=== PATIENT | female | born 1990 | race Caucasian/White ===

== ENCOUNTER 2022-10-25 00:33 | Inpatient (IN) | payer SELFPAY ==
[~2022-10-25] VITALS: Ht 165.1 cm; Wt 55.5 kg
[2022-10-25] VITALS (11 sets, daily range): BP systolic 97–131; BP diastolic 47–72
[2022-10-25 00:57] LABS: HEMATOCRIT 34.3 % (37.0-47.0); MANUAL DIFF REFLEX YES; MEAN CELL VOLUME 90.7 fl (81.0-99.0); MEAN CORPUSCULAR HGB 31.5 pg (27.0-31.0); MEAN CORPUSCULAR HGB CONC 34.7 g/dl (33.0-37.0); MEAN PLATELET VOLUME 9.6 fl (9.6-12.3); PLATELET COUNT AUTOMATED 423 10*3/uL (130-400); RED BLOOD COUNT 3.78 10*6/uL (4.10-5.10); WHITE BLOOD COUNT 24.9 10*3/uL (4.8-10.8)
[2022-10-25 01:13] LABS: ALKALINE PHOSPHATASE 98 U/L (46-116); BUN 15 mg/dl (9-23); CHLORIDE 95 mmol/L (98-107); CREATININE 0.83 mg/dL (0.55-1.02); ETHYL ALCOHOL 7.2 mg/dl (<3); SGPT/ALT 47 U/L (10-49); SODIUM 130 mmol/L (136-145)
[2022-10-25 01:14] LABS: TOTAL PROTEIN 7.5 gm/dL (6.0-8.0)
[2022-10-25 01:16] LABS: TOTAL CELLS COUNTED 100 #CELLS
[2022-10-25 01:17] LABS: PLATELET SUFFICIENCY HIGH (NORMAL)
[2022-10-25 01:25] LABS: CPK 3477 U/L (34-171)
[2022-10-25 01:38] LABS: BILIRUBIN Negative (Negative); BLOOD 1+ (Negative); CLARITY Clear (Clear); COLOR Yellow (Yellow); GLUCOSE Negative (Negative); KETONE 1+ (Negative); LEUKO ESTERASE Negative (Negative); NITRITE Negative (Negative); SPECIFIC GRAVITY >= 1.030 (1.001-1.030)
[2022-10-25 01:45] LABS: URINE AMPHETAMINES Positive (1000ng/ml)
[2022-10-25 01:46] LABS: URINE BARBITURATES Negative (200ng/ml); URINE BENZODIAZEPINES Negative (200ng/ml); URINE CANNABINOIDS (THC) Positive (50ng/ml); URINE COCAINE Negative (300ng/ml); URINE METHADONE Negative (300ng/ml); URINE OPIATES Negative (300ng/ml); URINE PHENCYCLIDINE Negative (25ng/ml)
[2022-10-25 01:58] LABS: EPITHELIAL CELLS 16-20
[2022-10-25 01:59] LABS: WBC 0-2 wbc/hpf (0-5)
[2022-10-25 07:59] LABS: HEMATOCRIT 31.3 % (37.0-47.0); MEAN CELL VOLUME 91.8 fl (81.0-99.0); MEAN CORPUSCULAR HGB 31.4 pg (27.0-31.0); MEAN CORPUSCULAR HGB CONC 34.2 g/dl (33.0-37.0); MEAN PLATELET VOLUME 9.9 fl (9.6-12.3); PLATELET COUNT AUTOMATED 300 10*3/uL (130-400); RED BLOOD COUNT 3.41 10*6/uL (4.10-5.10); RED CELL DISTRI WIDTH 13.3 % (0-14.5); WHITE BLOOD COUNT 19.1 10*3/uL (4.8-10.8)
[2022-10-25 08:00] LABS: MANUAL DIFF REFLEX YES
[2022-10-25 08:13] LABS: ALKALINE PHOSPHATASE 80 U/L (46-116); BUN 10 mg/dl (9-23); CHLORIDE 106 mmol/L (98-107); CREATININE 0.55 mg/dL (0.55-1.02); SGPT/ALT 40 U/L (10-49); SODIUM 135 mmol/L (136-145)
[2022-10-25 08:14] LABS: TOTAL PROTEIN 6.1 gm/dL (6.0-8.0)
[2022-10-25 08:50] LABS: POTASSIUM 4.1 mmol/L (3.4-5.1)
[2022-10-25 08:58] LABS: PLATELET SUFFICIENCY NORMAL (NORMAL); TOTAL CELLS COUNTED 100 #CELLS
[2022-10-25 13:29] LABS: CHLORIDE 101 mmol/L (98-107); POTASSIUM 3.3 mmol/L (3.4-5.1); SODIUM 133 mmol/L (136-145)
[2022-10-25 13:35] LABS: BUN 9 mg/dl (9-23); CREATININE 0.59 mg/dL (0.55-1.02)
[2022-10-25] MEDS ORDERED: FLUOXETINE HCL60 MG PO (15:10)
[2022-10-25] MEDS ORDERED: LAMICTAL100 MG PO (15:11)
[2022-10-25] MEDS ORDERED: OLANZAPINE10 MG PO (15:12)
[2022-10-26] VITALS: BP 98/55
[2022-10-26 06:37] LABS: BASO % 0.2 % (0.0-1.0); EOS # 0.1 10*3/uL (0.0-0.4); EOS % 0.6 % (1.0-4.0); HEMATOCRIT 29.9 % (37.0-47.0); LYMPH # 2.3 10*3/uL (1.3-4.4); LYMPH % 18.5 % (27.0-41.0); MEAN CELL VOLUME 91.4 fl (81.0-99.0); MEAN CORPUSCULAR HGB 30.6 pg (27.0-31.0); MEAN CORPUSCULAR HGB CONC 33.4 g/dl (33.0-37.0); MEAN PLATELET VOLUME 10.4 fl (9.6-12.3); MONO # 0.9 10*3/uL (0.1-1.0); MONO % 7.2 % (3.0-9.0); NEUT # 9.1 10*3/uL (2.3-7.9); PLATELET COUNT AUTOMATED 343 10*3/uL (130-400); RED BLOOD COUNT 3.27 10*6/uL (4.10-5.10); RED CELL DISTRI WIDTH 13.8 % (0-14.5); WHITE BLOOD COUNT 12.5 10*3/uL (4.8-10.8)
[2022-10-26 07:00] LABS: ALKALINE PHOSPHATASE 69 U/L (46-116); BUN 12 mg/dl (9-23); CHLORIDE 109 mmol/L (98-107); CHOLESTEROL 121 mg/dL (<200); CREATININE 0.52 mg/dL (0.55-1.02); LDL CHOLESTEROL 54 mg/dL (9-159); POTASSIUM 3.5 mmol/L (3.4-5.1); SGPT/ALT 39 U/L (10-49); SODIUM 138 mmol/L (136-145); TOTAL PROTEIN 5.6 gm/dL (6.0-8.0); TRIGLYCERIDES 68 mg/dl (<150)
[2022-10-26 07:10] LABS: CPK 6469 U/L (34-171)
[2022-10-26 08:00] VITALS: BP 128/81
[2022-10-26 12:00] VITALS: BP 105/61
[2022-10-26 16:00] VITALS: BP 111/80
[2022-10-26 20:00] VITALS: BP 112/65
[2022-10-27] VITALS: BP 108/55
[2022-10-27 06:12] LABS: BASO % 0.4 % (0.0-1.0); EOS # 0.1 10*3/uL (0.0-0.4); EOS % 1.5 % (1.0-4.0); HEMATOCRIT 27.5 % (37.0-47.0); LYMPH # 2.5 10*3/uL (1.3-4.4); LYMPH % 29.9 % (27.0-41.0); MEAN CELL VOLUME 93.9 fl (81.0-99.0); MEAN CORPUSCULAR HGB 31.1 pg (27.0-31.0); MEAN CORPUSCULAR HGB CONC 33.1 g/dl (33.0-37.0); MEAN PLATELET VOLUME 10.1 fl (9.6-12.3); MONO # 0.7 10*3/uL (0.1-1.0); MONO % 8.3 % (3.0-9.0); NEUT # 4.9 10*3/uL (2.3-7.9); NEUT % 59.4 % (47.0-73.0); PLATELET COUNT AUTOMATED 307 10*3/uL (130-400); RED BLOOD COUNT 2.93 10*6/uL (4.10-5.10); RED CELL DISTRI WIDTH 13.9 % (0-14.5); WHITE BLOOD COUNT 8.2 10*3/uL (4.8-10.8)
[2022-10-27 06:29] LABS: ALKALINE PHOSPHATASE 74 U/L (46-116); BUN 8 mg/dl (9-23); CHLORIDE 111 mmol/L (98-107); CREATININE 0.51 mg/dL (0.55-1.02); POTASSIUM 3.5 mmol/L (3.4-5.1); SGPT/ALT 69 U/L (10-49); SODIUM 142 mmol/L (136-145); TOTAL PROTEIN 5.2 gm/dL (6.0-8.0)
[2022-10-27 07:30] VITALS: BP 115/56
[2022-10-27 12:00] VITALS: BP 115/56
[2022-10-27 16:00] VITALS: BP 102/40; BP 113/76
[2022-10-27] MEDS ORDERED: DOXYCYCLINE HY100 M3 PO (18:48)
== END 2022-10-27 18:52 | disposition left against medical advice (07) | DRG 871 ==
LOC: ED 00:33 → 4E 03:20 → EDHOLD 03:20 → 4E 12:17
PROVIDERS: Emergency Medicine; Internal Medicine; Student in an Organized Health Care Education/Training Program; ADMIT Emergency Medicine; ATTEND Emergency Medicine
DX: A41.9 Sepsis, unspecified organism (principal); G93.41 Metabolic encephalopathy; J18.9 Pneumonia, unspecified organism; E87.1 Hypo-osmolality and hyponatremia; M62.82 Rhabdomyolysis; E44.1 Mild protein-calorie malnutrition; E87.20 Acidosis, unspecified; F19.10 Other psychoactive substance abuse, uncomplicated; Z20.822 Contact with and (suspected) exposure to COVID-19; R65.20 Severe sepsis without septic shock; E87.6 Hypokalemia; D64.9 Anemia, unspecified; D75.839 Thrombocytosis, unspecified; E87.8 Other disorders of electrolyte and fluid balance, not elsewhere classified; R73.9 Hyperglycemia, unspecified; Z53.29 Procedure and treatment not carried out because of patient's decision for other reasons; R74.01 Elevation of levels of liver transaminase levels; Z68.20 Body mass index [BMI] 20.0-20.9, adult

== ENCOUNTER 2023-06-21 13:00 | Emergency (ER) | payer OTHER ==
[~2023-06-21] VITALS: Ht 157.4 cm; Wt 52.2 kg
[~2023-06-21 13:00] MED LIST: DOXYCYCLINE HY100 M3 PO; FLUOXETINE HCL60 MG PO; LAMICTAL100 MG PO; OLANZAPINE10 MG PO
[2023-06-21] MEDS ORDERED: VRAYLAR3 MG PO (13:12)
[2023-06-21] MEDS ORDERED: VISTARIL25 MG PO (13:12)
[2023-06-21 14:09] LABS: BASO # 0.1 10*3/uL (0.0-0.1); BASO % 0.6 % (0.0-1.0); EOS # 0.2 10*3/uL (0.0-0.4); EOS % 2.4 % (1.0-4.0); HEMATOCRIT 40.5 % (37.0-47.0); LYMPH # 1.7 10*3/uL (1.3-4.4); LYMPH % 17.4 % (27.0-41.0); MEAN CELL VOLUME 91.8 fl (81.0-99.0); MEAN CORPUSCULAR HGB 30.6 pg (27.0-31.0); MEAN CORPUSCULAR HGB CONC 33.3 g/dl (33.0-37.0); MONO # 0.6 10*3/uL (0.1-1.0); NEUT # 7.3 10*3/uL (2.3-7.9); NEUT % 73.1 % (47.0-73.0); PLATELET COUNT AUTOMATED 309 10*3/uL (130-400); RED BLOOD COUNT 4.41 10*6/uL (4.10-5.10); RED CELL DISTRI WIDTH 13.1 % (0-14.5)
[2023-06-21 14:36] LABS: ALKALINE PHOSPHATASE 70 U/L (46-116); BUN 6 mg/dl (9-23); CHLORIDE 104 mmol/L (98-107); LIPASE 25 U/L (12-53); POTASSIUM 4.1 mmol/L (3.4-5.1); SGPT/ALT 12 U/L (10-49); TOTAL PROTEIN 6.9 gm/dL (6.0-8.0)
[2023-06-21 14:44] LABS: ETHYL ALCOHOL < 3.0 mg/dl (<3)
[2023-06-21 14:51] LABS: BILIRUBIN Negative (Negative); BLOOD 3+ (Negative); CLARITY Cloudy (Clear); COLOR Yellow (Yellow); GLUCOSE Negative (Negative); KETONE Negative (Negative); LEUKO ESTERASE 1+ (Negative); NITRITE Negative (Negative); PH 6.5 (4.5-8.0); SPECIFIC GRAVITY 1.015 (1.001-1.030)
[2023-06-21 14:58] LABS: URINE AMPHETAMINES Positive (1000ng/ml); URINE BARBITURATES Negative (200ng/ml); URINE BENZODIAZEPINES Negative (200ng/ml); URINE CANNABINOIDS (THC) Positive (50ng/ml); URINE COCAINE Negative (300ng/ml); URINE METHADONE Negative (300ng/ml); URINE OPIATES Positive (300ng/ml); URINE PHENCYCLIDINE Negative (25ng/ml)
[2023-06-21 15:03] LABS: BACTERIA 2+
== END 2023-06-21 16:45 | disposition home or self-care (01) ==
LOC: ED 13:00
PROVIDERS: Internal Medicine
DX: T50.901A Poisoning by unspecified drugs, medicaments and biological substances, accidental (unintentional), initial encounter (principal); M25.532 Pain in left wrist; F12.10 Cannabis abuse, uncomplicated; F15.10 Other stimulant abuse, uncomplicated; F19.10 Other psychoactive substance abuse, uncomplicated; Y92.89 Other specified places as the place of occurrence of the external cause

== ENCOUNTER 2024-06-10 22:53 | Emergency (ER) | payer OTHER ==
[~2024-06-10] VITALS: Ht 157.4 cm; Wt 49.9 kg
[~2024-06-10 22:53] MED LIST changes: +VISTARIL25 MG PO; +VRAYLAR3 MG PO
[2024-06-11 00:13] LABS: HEMATOCRIT 38.4 % (37.0-47.0); LYMPH # 2.4 10*3/uL (1.3-4.4); LYMPH % 34.2 % (27.0-41.0); MEAN CELL VOLUME 88.9 fl (81.0-99.0); MEAN CORPUSCULAR HGB 30.6 pg (27.0-31.0); MEAN CORPUSCULAR HGB CONC 34.4 g/dl (33.0-37.0); MEAN PLATELET VOLUME 10.6 fl (9.6-12.3); MONO # 0.6 10*3/uL (0.1-1.0); NEUT # 4.1 10*3/uL (2.3-7.9); NEUT % 57.5 % (47.0-73.0); PLATELET COUNT AUTOMATED 256 10*3/uL (130-400); RED BLOOD COUNT 4.32 10*6/uL (4.10-5.10); WHITE BLOOD COUNT 7.1 10*3/uL (4.8-10.8)
[2024-06-11 00:37] LABS: ALKALINE PHOSPHATASE 68 U/L (46-116); BUN < 5 mg/dl (9-23); CHLORIDE 111 mmol/L (98-107); CPK 103 U/L (34-171); ETHYL ALCOHOL < 3.0 mg/dl (<3); POTASSIUM 3.5 mmol/L (3.4-5.1); SGPT/ALT 12 U/L (5-49); TOTAL PROTEIN 6.6 gm/dL (6.0-8.0)
[2024-06-11 01:35] LABS: BILIRUBIN Negative (Negative); BLOOD Negative (Negative); CLARITY Cloudy (Clear); COLOR Yellow (Yellow); GLUCOSE Negative (Negative); KETONE Negative (Negative); LEUKO ESTERASE 1+ (Negative); NITRITE Negative (Negative); SPECIFIC GRAVITY <= 1.005 (1.001-1.030); UROBILINOGEN 0.2 E.U./dl (0.0-1.0)
[2024-06-11 01:43] LABS: URINE AMPHETAMINES Positive (1000ng/ml); URINE BARBITURATES Negative (200ng/ml); URINE BENZODIAZEPINES Negative (200ng/ml); URINE CANNABINOIDS (THC) Positive (50ng/ml); URINE COCAINE Negative (300ng/ml); URINE METHADONE Negative (300ng/ml); URINE OPIATES Negative (300ng/ml); URINE PHENCYCLIDINE Negative (25ng/ml)
[2024-06-11 01:47] LABS: EPITHELIAL CELLS 16-20; YEAST TRACE
[2024-06-11 01:48] LABS: BACTERIA TRACE
== END 2024-06-11 02:50 | disposition home or self-care (01) ==
LOC: ED 22:53
PROVIDERS: Emergency Medicine
DX: R20.2 Paresthesia of skin (principal); F31.9 Bipolar disorder, unspecified; F90.9 Attention-deficit hyperactivity disorder, unspecified type; F41.9 Anxiety disorder, unspecified; E87.6 Hypokalemia; E87.1 Hypo-osmolality and hyponatremia; F12.10 Cannabis abuse, uncomplicated; F15.10 Other stimulant abuse, uncomplicated